=== PATIENT | female | born 1995 | race Caucasian/White ===

== ENCOUNTER → 2025-04-16 09:25 | Outpatient (CLI) | payer OTHER, SELFPAY ==
--- NOTE | 2025-04-16 09:29 | DI.RAD.S_ITS ---
PROCEDURE: XR LUMBAR SPINE 2-3V INDICATIONS: back pain TECHNIQUE: 3 views of the lumbar spine were acquired. COMPARISON: None. FINDINGS: Lumbar spine curvature and alignment: Normal. Bones: There are no osseous abnormalities. Disc spaces: Normal in height without significant degeneration. Intervertebral foramen: Grossly normal in width. Soft tissues: No soft tissue swelling, calcification or mass. IMPRESSION: Normal lumbar spine Dictated by: Emanuel Taylor M.D. on 04/17/2025 at 11:38 Approved by: Emanuel Taylor M.D. on 04/17/2025 at 11:38
--- NOTE | 2025-04-16 09:29 | DI.RAD.S_ITS ---
PROCEDURE: XR THORACIC SPINE 3V INDICATIONS: back pain TECHNIQUE: 3 views of the thoracic spine were acquired. COMPARISON: None. FINDINGS: Thoracic spine curvature and alignment: Normal. 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 Soft tissues: No soft tissue swelling, calcification or mass. IMPRESSION: Mild disc degeneration upper midthoracic spine Dictated by: Emanuel Taylor M.D. on 04/17/2025 at 11:37 Approved by: Emanuel Taylor M.D. on 04/17/2025 at 11:38
--- NOTE | 2025-04-16 09:29 | DI.RAD.S_ITS ---
PROCEDURE: XR HIP W PEL IF DONE RT 2V INDICATIONS: Hip pain TECHNIQUE: AP pelvis with lateral view(s) of the right hip COMPARISON: None. FINDINGS: Bones: There are no osseous abnormalities. SI and hip joints: Lateral uncovering of the right acetabulum over the femoral head is compatible with very minimal congenital hip dysplasia. Both hips are normal in width aligned with arthritic change. The SI joints are unremarkable . Soft tissues: No soft tissue swelling, calcification or mass. IMPRESSION: Minimal congenital right hip dysplasia Dictated by: Emanuel Taylor M.D. on 04/17/2025 at 11:39 Approved by: Emanuel Taylor M.D. on 04/17/2025 at 11:40
[2025-04-16 11:01] LABS: Add Manual Diff / Slide Review NO; Hematocrit 40.9 % (36-46); Hemoglobin 14.1 g/dL (12.0-16.0); Lymphocytes Absolute Auto 2000 /uL (1100-4500); Mean Corpuscular HGB Conc 34.4 % (30-36); Mean Corpuscular Hemoglobin 29.5 PG (26-34); Mean Corpuscular Volume 85.8 fL (80-100); Platelet Count 288 X10^3/uL (150-400)
[2025-04-16 11:17] LABS: Alanine Aminotransferase 20 IU/L (<35); Albumin 4.6 g/dL (3.5-5.0); Albumin Globulin Ratio 1.4 (1.0-2.8); Alkaline Phosphatase 85 U/L (38-126); Blood Urea Nitrogen 15 mg/dL (7-17); Calcium 9.2 mg/dL (8.4-10.2); Carbon Dioxide 22 mmol/L (22-32); Chloride 105 mmol/L (98-107); Cholesterol 224 mg/dL (140-199); Estimated Glomerular Filt Rate > 60 mL/min (>60); Globulin 3.2 g/dL (1.7-4.1); Glucose 94 mg/dL (70-99); HDL Cholesterol 43 mg/dL (40-60); HEMOLYSIS < 15 (0-50); Potassium 4.1 mmol/L (3.4-5.1); Sodium 137 mmol/L (137-145); Total Protein 7.8 g/dL (6.3-8.2); Triglycerides 121 mg/dL (35-150)
[2025-04-16 11:48] LABS: Thyroid Stimulating Hormone 1.48 uIU/mL (0.47-4.68)
== END ==
LOC: LAB 09:27 → RAD 09:28
PROVIDERS: PCP Family Medicine; Referring Provider Family Medicine; Visit Provider Family Medicine
DX: Z00.00 Encounter for general adult medical examination without abnormal findings (principal); M51.34 Other intervertebral disc degeneration, thoracic region; M54.50 Low back pain, unspecified; R20.0 Anesthesia of skin; I10 Essential (primary) hypertension
CPT/HCPCS: 36415; 72072; 72100; 73502; 80053; 80061; 84443; 85025

== ENCOUNTER → 2025-04-23 14:02 | Outpatient (CLI) | payer OTHER, SELFPAY ==
[2025-04-23 18:55] LABS: Influenza A - CEPHEID Flu A NEGATIVE (NEGATIVE); Influenza B - CEPHEID Flu B NEGATIVE (NEGATIVE)
[2025-04-23 19:08] LABS: COVID-19 CEPHEID 4-PLEX PCR Negative (Negative)
== END ==
PROVIDERS: PCP Family Medicine; Visit Provider Chiropractor
DX: J02.9 Acute pharyngitis, unspecified (principal)
CPT/HCPCS: 87070; 87637

== ENCOUNTER → 2025-05-13 13:13 | Outpatient (CLI) | payer OTHER, SELFPAY ==
--- NOTE | 2025-05-13 13:13 | DI.RAD.S_ITS ---
PROCEDURE: FL BARIUM SWALLOW INDICATIONS: dysphagia COMPARISON: None. FINDINGS: There is normal transit of ingested barium into the stomach on upright position. No obstructing mass lesion identified. In recumbent position, a small sliding hiatal hernia is suspected, with small volume elicited gastroesophageal reflux. No significant esophageal dysmotility in prone position. IMPRESSION: Small sliding hiatal hernia suspected with small volume elicited gastroesophageal reflux. Dictated by: Roberto Aguillon M.D. on 05/13/2025 at 14:12 Approved by: Roberto Aguillon M.D. on 05/13/2025 at 14:13
== END ==
LOC: RAD 13:13
PROVIDERS: PCP Family Medicine; Referring Provider Family Medicine; Visit Provider Family Medicine
DX: R13.10 Dysphagia, unspecified (principal); K21.9 Gastro-esophageal reflux disease without esophagitis
CPT/HCPCS: 74220

== ENCOUNTER → 2025-05-27 12:19 | Outpatient (CLI) | payer OTHER, SELFPAY | PROVIDERS: PCP Family Medicine; Visit Provider Nurse Practitioner Family | DX: J02.9 Acute pharyngitis, unspecified (principal) | CPT/HCPCS: 87070 ==

== ENCOUNTER → 2025-06-23 16:45 | Outpatient (CLI) | payer OTHER, SELFPAY ==
--- NOTE | 2025-06-23 16:49 | DI.RAD.S_ITS ---
PROCEDURE: XR ANKLE RT MIN 3V INDICATIONS: ankle pain TECHNIQUE: 3 views of the ankle were acquired. COMPARISON: None. FINDINGS: Bones: No fractures or dislocations. Ankle mortise is normally aligned. No suspicious bony lesions. Soft tissues: No tibiotalar joint effusion. Achilles tendon appears normal. IMPRESSION: No visualized acute fracture or dislocation. However, if clinical concern and/or pain persist, short interval imaging followup in 7-10 days is recommended, as occult injury cannot be definitively excluded. Dictated by: Sandy Araujo M.D. on 06/24/2025 at 0:53 Approved by: Sandy Araujo M.D. on 06/24/2025 at 0:54
== END ==
LOC: RAD 16:48
PROVIDERS: PCP Family Medicine; Referring Provider Family Medicine; Visit Provider Family Medicine
DX: M25.571 Pain in right ankle and joints of right foot (principal); G89.29 Other chronic pain
CPT/HCPCS: 73610